=== PATIENT | male | born 1980 | race Hispanic/Latino ===

== ENCOUNTER 2022-09-04 12:26 | Emergency (ER) | payer OTHER ==
[2022-09-04 13:27] LABS: Absolute Lymphocytes (CBC) 0.9 K/uL (0.7-4.9); Hematocrit 45.5 % (39.6-49.0); Lymphocytes % 20.3 % (15.3-44.8); MCV 88.1 fL (80-100); MPV 9.6 fL (7.6-11.3); RBC Red Blood Cell Count 5.16 M/uL (4.33-5.43)
[2022-09-04 13:44] LABS: Albumin 3.6 g/dL (3.4-5.0); Bilirubin Total 0.6 mg/dL (0.2-1.0); Potassium 3.7 mmol/L (3.5-5.1); Protein, Total 7.6 g/dL (6.4-8.2)
--- NOTE | 2022-09-04 14:28 | RAD REPORT ---
EXAM DESCRIPTION: CT - Chest For Pe Angio - 09/04/2022 2:18 pm CLINICAL HISTORY: sob, covid COMPARISON: No comparisons TECHNIQUE: Dynamically enhanced axial 3 mm thick images of the chest were obtained during administra tion of <100> mL Isovue 370 IV contrast. Coronal and oblique reconstruction images were generated and reviewed. Exam utilizes a protocol for optimal evaluation of pulmonary arterial tree. Maximum intensity projections 3D imaging was utilized All CT scans are performed using dose optimization technique as appropriate and may include automated exposure control or mA/KV adjustment according to patient size. FINDINGS: Chest Wall: No suspicious thyroid nodules or pathologic lymphadenopathy. Lungs: Randomly scattered bilateral ground-glass opacities which is mild. Pleura: No significant effusions or pneumothorax. Mediastinum/james: No pathologic lymphadenopathy. Mild circumferential thickened distal esophagus whic h may reflect mild esophagitis. Pulmonary arteries/Aorta: No filling defect identified. No aortic aneurysm. Heart: No significant pericardial effusion. Normal heart size. Upper abdomen: No acute abnormality.Hepatic steatosis. Bones: No acute abnormality. IMPRESSION: Negative for pulmonary embolism. Random bilateral ground-glass opacities in a pattern ty pical of mild Covid-19 pneumonia.
--- NOTE | 2022-09-04 15:17 | ER ---
Nurse's Notes [facility] Name: Melvin Cantu Age: 42 yrs Sex: Male : 1980 Arrival Date: 09/04/2022 Time: 12:31 Bed Treatment Private MD: Diagnosis: Coronavirus infection, unspecified Presentation: 09/04 12:51 Chief complaint: Patient states: he tested positive for COVID on Sunday08/30/2022, ap3 and is having continued symptoms of fever and body aches. Coronavirus screen: Client reports previous positive COVID test result. Date of collection: August 30, 2022. Ebola Screen: No symptoms or risks identified at this time. Initial Sepsis Screen: Does the patient meet any 2 criteria? HR > 90 bpm. Does the patient have a suspected source of infection? No. Patient's initial sepsis screen is negative. Risk Assessment: Do you want to hurt yourself or someone else? Patient reports no desire to harm self or others. Onset of symptoms was August 30, 2022. 12:51 Method Of Arrival: Ambulatory ap3 12:51 Acuity: EAMON 4 ap3 13:06 Acuity: EAMON 3 ap3 Triage Assessment: 12:53 General: Appears ill, Behavior is calm, cooperative. Pain: Complains of pain in ap3 generalized body aches. Neuro: Level of Consciousness is awake, alert, obeys commands, Oriented to person, place, time, situation. Cardiovascular: Patient's skin is warm and dry. Respiratory: Reports cough that is Airway is patent Respiratory effort is even, unlabored. GI: Reports diarrhea. Historical: - Allergies: 12:53 No Known Allergies; ap3 - Home Meds: 12:53 None [Active]; ap3 - PMHx: 12:53 Diabetes - NIDDM; ap3 - Immunization history:: Client reports receiving the 2nd dose of the Covid vaccine. - Social history:: Smoking status: Patient denies any tobacco usage or history of. Screenin:54 Abuse screen: Denies threats or abuse. Nutritional screening: No deficits noted. ap3 Tuberculosis screening: No symptoms or risk factors identified. Fall Risk No fall in past 12 months (0 pts). Assessment: 14:20 General: Appears in no apparent distress. Behavior is cooperative. Pain: Denies pain. em6 Neuro: Lane Agitation-Sedation Scale (RASS): 0 - Alert and Calm. Cardiovascular: Patient's skin is warm and dry. Respiratory: Airway is patent Respiratory effort is even, unlabored, Respiratory pattern is regular, symmetrical, Breath sounds are clear bilaterally. GI: Abdomen is non-distended, Bowel sounds present X 4 quads. Abd is soft and non tender X 4 quads. : No signs and/or symptoms were reported regarding the genitourinary system. EENT: Reports nasal congestion. Derm: No signs and/or symptoms reported regarding the dermatologic system. Musculoskeletal: Circulation, motion, and sensation intact. 15:17 Reassessment: Patient appears in no apparent distress at this time. No changes from em6 previously documented assessment. Patient and/or family updated on plan of care and expected duration. Pain level reassessed. Patient is alert, oriented x 3, equal unlabored respirations, skin warm/dry/pink. Vital Signs: 12:51 BP 140 / 81; Pulse 95; Resp 18; Temp 100.1; Pulse Ox 98% ; Weight 118.84 kg; Height 5 ap3 ft. 9 in. (175.26 cm); 14:40 BP 122 / 73; Pulse 89; Resp 18; Pulse Ox 98% on R/A; em6 15:41 BP 133 / 78; Pulse 84; Resp 18; Pulse Ox 98% on R/A; em6 12:51 Body Mass Index 38.69 (118.84 kg, 175.26 cm) ap3 ED Course: 12:31 Patient arrived in ED. rg4 12:32 Richard Ball PA is PHCP. [facility] 12:32 Chris Yi DO is Attending Physician. jmm 12:53 Triage completed. ap3 12:54 Arm band placed on right wrist. ap3 12:54 Patient has correct armband on for positive identification. Adult w/ patient. ap3 13:15 CMP Sent. ap3 13:15 CBC with Diff Sent. ap3 14:20 CT Chest For PE Angio In Process Unspecified. EDMS 14:21 Ginna Champion, RN is Primary Nurse. em6 15:41 No provider procedures requiring assistance completed. IV discontinued, intact, em6 bleeding controlled, No redness/swelling at site. Pressure dressing applied. Administered Medications: 14:01 Drug: NS 0.9% 1000 ml Route: IV; Rate: 1000 ml; Site: right antecubital; 15:41 Follow up: Response: No adverse reaction; IV Status: Completed infusion; IV Intake: em6 1000ml 14:01 Drug: Ibuprofen 400 mg Route: PO; 14:41 Follow up: Response: No adverse reaction em6 Medication: 15:42 VIS not applicable for this client. em6 Intake: 15:41 IV: 1000ml; Total: 1000ml. em6 Outcome: 15:17 Discharge ordered by . samaria 15:41 Discharged to home ambulatory, with significant other. em6 15:41 Condition: stable 15:41 Discharge instructions given to patient, Instructed on discharge instructions, follow up and referral plans. medication usage, Demonstrated understanding of instructions, follow-up care, medications, Prescriptions given X 2. 15:42 Patient left the ED. em6 Signatures: Dispatcher [employer] EDMS Richard Ball PA PA jmm Williams, Irene, KARLOS RN iw Saige Cantu rg4 Anyi Rosario RN RN ap3 Ginna Champion RN RN em6 Corrections: (The following items were deleted from the chart) 12:53 12:53 Home Meds: metformin 500 mg Oral tab 1 tab 2 times per day for Type 2 Diabetes ap3 Mellitus; ap3 12:53 12:53 Home Meds: Trulicity 0.75 mg/0.5 mL subcutaneous pnij 0.5 mL once wkly; ap3 ap3
--- NOTE | 2022-09-04 15:18 | EDPHYS ---
Physician Documentation [facility] Name: Melvin Cantu Age: 42 yrs Sex: Male : 1980 Arrival Date: 09/04/2022 Time: 12:31 Bed Treatment Private MD: ED Physician Chris Yi HPI: 09/04 12:59 This 42 yrs old Male presents to ER via Ambulatory with complaints of Fever, jmm Decreased Appetite, Diarrhea, Shortness Of Breath. 12:59 This is a 42-year-old male with history of diabetes mellitus the presents emerged part [facility] with complaints of cough and shortness of breath progressively worsening over the past 5 days. Patient was previously diagnosed with COVID-19. Currently is taking Tylenol Motrin, [id number] medications with little to no relief. Advised by PCP to go to the ER for further evaluation.. Historical: - Allergies: 12:53 No Known Allergies; ap3 - Home Meds: 12:53 None [Active]; ap3 - PMHx: 12:53 Diabetes - NIDDM; ap3 - Immunization history:: Client reports receiving the 2nd dose of the Covid vaccine. - Social history:: Smoking status: Patient denies any tobacco usage or history of. ROS: 12:59 Constitutional: Positive for body aches, chills, fever. [facility] 12:59 Respiratory: Positive for cough, shortness of breath. 12:59 All other systems are negative. Exam: 12:59 Constitutional: This is a well developed, well nourished patient who is awake, alert, jmm and in no acute distress. Head/Face: atraumatic. Eyes: EOMI, no conjunctival erythema appreciated ENT: Moist Mucus Membranes Neck: Trachea midline, Supple Chest/axilla: Normal chest wall appearance and motion. Cardiovascular: Regular rate and rhythm. No edema appreciated Respiratory: Normal respirations, no respiratory distress appreciated Abdomen/GI: Non distended Back: Normal ROM Skin: General appearance color normal MS/ Extremity: Moves all extremities, no obvious deformities appreciated, no edema noted to the lower extremities Neuro: Awake and alert Psych: Behavior is normal, Mood is normal, Patient is cooperative and pleasant Vital Signs: 12:51 BP 140 / 81; Pulse 95; Resp 18; Temp 100.1; Pulse Ox 98% ; Weight 118.84 kg; Height 5 ap3 ft. 9 in. (175.26 cm); 14:40 BP 122 / 73; Pulse 89; Resp 18; Pulse Ox 98% on R/A; em6 15:41 BP 133 / 78; Pulse 84; Resp 18; Pulse Ox 98% on R/A; em6 12:51 Body Mass Index 38.69 (118.84 kg, 175.26 cm) ap3 MDM: 13:10 Patient medically screened. [facility] 15:17 Data reviewed: vital signs, nurses notes. Counseling: I had a detailed discussion with samaria the patient and/or guardian regarding: the historical points, exam findings, and any diagnostic results supporting the discharge/admit diagnosis, lab results, radiology results, the need for outpatient follow up, to return to the emergency department if symptoms worsen or persist or if there are any questions or concerns that arise at home. 09/04 12:59 Order name: CBC with Diff; Complete Time: 13:32 [facility] 09/04 12:59 Order name: CMP; Complete Time: 13:45 [facility] 09/04 12:59 Order name: Saline Lock; Complete Time: 13:15 [facility] 09/04 13:55 Order name: CT Chest For PE Angio; Complete Time: 14:30 [facility] Administered Medications: 14:01 Drug: NS 0.9% 1000 ml Route: IV; Rate: 1000 ml; Site: right antecubital; iw 15:41 Follow up: Response: No adverse reaction; IV Status: Completed infusion; IV Intake: em6 1000ml 14:01 Drug: Ibuprofen 400 mg Route: PO; iw 14:41 Follow up: Response: No adverse reaction em6 Disposition: 18:26 Co-signature as Attending Physician, Chris CAPONE was immediately available onsite ms3 in the emergency department for consultation in the care of the patient. Disposition Summary: 09/04/22 15:17 Discharge Ordered Location: Home [facility] Condition: Stable [facility] Diagnosis - Coronavirus infection, unspecified [facility] Followup: [facility] - With: Private Physician - When: 2 - 3 days - Reason: Recheck today's complaints, Continuance of care, Re-evaluation by your physician Discharge Instructions: - Discharge Summary Sheet [facility] - COVID-19 [facility] Forms: - Medication Reconciliation Form [facility] - Thank You Letter [facility] - Antibiotic Education [facility] - Prescription Opioid Use [facility] Prescriptions: - ALBUTEROL HFA - take 2 puff by INHALATION route every 4-6 hours As needed; 1 Pump; Refills: 0, [facility] Product Selection Permitted - Metformin 500 mg Oral Tablet - take 1 tablet by ORAL route once daily for 7 days Then take 1 tablet with [facility] morning meals AND evening meals; 21 tablet; Refills: 0, Product Selection Permitted Signatures: Dispatcher [employer] Richard Carreon PA PA [facility] Dana Abel RN RN iw Anyi Rosario RN RN ap3 Chris Yi DO DO ms3 Ginna Champion RN em6 Corrections: (The following items were deleted from the chart) 12:53 12:53 Home Meds: metformin 500 mg Oral tab 1 tab 2 times per day for Type 2 Diabetes ap3 Mellitus; ap3 12:53 12:53 Home Meds: Trulicity 0.75 mg/0.5 mL subcutaneous pnij 0.5 mL once wkly; ap3 ap3
[2022-09-04 15:51] VITALS: TEMP 100.1; O2SAT 98
[2022-09-04 15:53] VITALS: BP 133/78
== END 2022-09-04 15:42 | disposition home or self-care (01) ==
LOC: ER 12:26
DX: U07.1 COVID-19 (principal)
CPT/HCPCS: 85025; 36415; 80053; 71275; Q9967; 96360; 96361; 99284